=== PATIENT | male | born 1970 | race African-American/Black ===

== ENCOUNTER 2022-10-08 11:59 | Inpatient (IN) | payer OTHER ==
[~2022-10-08] VITALS: Ht 180.3 cm; Wt 87.1 kg
[2022-10-08] MEDS ORDERED: SODIUM CHLORIDE 0.9% 1,000 ML IV ONE (12:30)
[2022-10-08] MEDS ORDERED: PANTOPRAZOLE 40 MG/10 ML VIAL INJ IV ONE (12:30)
[2022-10-08 13:18] LABS: Basophils # (auto) 0.1 10 ^3/uL (0-0.2); Eosinophils # (auto) 0.4 10 ^3/uL (0-0.8); Hemoglobin 8.6 g/dL (13.5-17.5); Monocytes # (auto) 0.8 10 ^3/uL (0-1.3); Neutrophils % (auto) 59.1 % (37.0-80.0); White Blood Cell 10.1 10^3/uL (4.4-10.8)
[2022-10-08 13:19] VITALS: PULSE 70; RESP 20; O2SAT 100
[2022-10-08 13:20] LABS: Basophils % (auto) 1.2 % (0.0-2.0); Eosinophils % (auto) 4.2 % (0.0-7.0); Lymphocytes # (auto) 2.8 10 ^3/uL (0.4-5.4); Lymphocytes % (auto) 27.3 % (10.0-50.0); Mean Corpuscular Hemoglobin 18.7 pg (28.0-32.0); Mean Corpuscular Hgb Conc. 29.7 g/dL (32.0-36.0); Monocytes % (auto) 8.2 % (0.0-12.0); Nucleated Red Blood Cells % 0.1 %; Red Cell Distribution Width 18.2 % (11.8-14.3)
[2022-10-08 13:34] LABS: Alanine Aminotransferase 22 U/L (7-40); Albumin 4.3 g/dL (3.2-4.8); Alkaline Phosphatase 124 U/L (46-116); Anion Gap 6.2 (5-15); Aspartate Aminotransferase 21 U/L (13-40); Bilirubin, Total 0.4 mg/dL (0.2-1.0); Blood Urea Nitrogen 16 mg/dL (9-23); Calcium 9.4 mg/dL (8.5-10.1); Carbon Dioxide 26.8 mmol/L (20-30); Chloride 107 mmol/L (98-107); Glucose 69 mg/dL (74-106); Lipase 40 U/L (12-53); Potassium 4.5 mmol/L (3.5-5.1); Sodium 140 mmol/L (136-145); Total Protein 7.2 g/dL (5.7-8.2)
[2022-10-08] MEDS ORDERED: MORPHINE SULFATE INJ 2 MG/ml SYRG IV PRN (15:15)
[2022-10-08] MEDS ORDERED: NITROGLYCERIN 0.4 MG SL TAB SL PRN (15:15)
[2022-10-08] MEDS ORDERED: ONDANSETRON HCL 4 MG/2 ML VIAL IV PRN (15:15)
[2022-10-08] MEDS: D5W/SOD CHL 0.45% 1,000 ML IV SCH (15:38)
[2022-10-08 17:10] LABS: Urine WBC None Seen /hpf (0 - 3)
[2022-10-08 17:17] LABS: Urine Bacteria NONE SEEN /hpf (None Seen); Urine Blood Negative /uL (Negative); Urine Clarity Clear (Clear); Urine Color Yellow (Yellow); Urine Protein, UAD 1+ (Negative); Urine Specific Gravity 1.027 (1.001-1.035); Urine Urobilinogen Normal (Negative)
[2022-10-08 19:50] VITALS: PULSE 70; RESP 98; O2SAT 98
[2022-10-08 20:30] LABS: INR 1.03 (0.9-1.15); Partial Thromboplastin Time 24.1 SEC (24.5-34.5); Prothrombin Time 10.8 sec (9.3-11.8)
[2022-10-08 21:59] VITALS: BP 104/43; PULSE 74; RESP 19; TEMP 97.5; O2SAT 100
[2022-10-08] MEDS: PANTOPRAZOLE 40 MG/10 ML VIAL INJ IV SCH (22:35)
[2022-10-08] MEDS ORDERED: INSRTEST IV ×2 (22:38)
[2022-10-08] MEDS ORDERED: LISI2.5T47 PO (22:38)
[2022-10-08] MEDS ORDERED: ASPI-123 PO (22:38)
[2022-10-09] VITALS (7 sets, daily range): BP systolic 128–149; BP diastolic 61–81; PULSE 65–81; RESP 16–18; TEMP 97.8–98.7; O2SAT 98–100
[2022-10-09] MEDS: D5W/SOD CHL 0.45% 1,000 ML IV SCH ×3 (01:30→21:56)
[2022-10-09 06:25] LABS: Basophils # (auto) 0.1 10 ^3/uL (0-0.2); Eosinophils # (auto) 0.4 10 ^3/uL (0-0.8); Monocytes # (auto) 0.7 10 ^3/uL (0-1.3); Nucleated Red Blood Cells % 0.1 %
[2022-10-09 06:27] LABS: Eosinophils % (auto) 4.5 % (0.0-7.0); Hematocrit 27.1 % (41.0-53.0); Hemoglobin 8.1 g/dL (13.5-17.5); Lymphocytes # (auto) 2.3 10 ^3/uL (0.4-5.4); Lymphocytes % (auto) 28.1 % (10.0-50.0); Mean Corpuscular Hemoglobin 18.8 pg (28.0-32.0); Mean Corpuscular Hgb Conc. 29.9 g/dL (32.0-36.0); Monocytes % (auto) 8.7 % (0.0-12.0); Neutrophils # (auto) 4.7 10 ^3/uL (1.6-8.6); Neutrophils % (auto) 57.7 % (37.0-80.0); Red Blood Cells 4.31 10^6/uL (4.5-5.90); Red Cell Distribution Width 18.1 % (11.8-14.3); White Blood Cell 8.2 10^3/uL (4.4-10.8)
[2022-10-09 06:49] LABS: Alanine Aminotransferase 18 U/L (7-40); Albumin 3.7 g/dL (3.2-4.8); Alkaline Phosphatase 109 U/L (46-116); Anion Gap 5.3 (5-15); Aspartate Aminotransferase 20 U/L (13-40); BUN/Creatinine Ratio 10.6 (10.0-20.0); Bilirubin, Total 0.6 mg/dL (0.2-1.0); Blood Urea Nitrogen 12 mg/dL (9-23); Calcium 8.9 mg/dL (8.5-10.1); Carbon Dioxide 26.7 mmol/L (20-30); Chloride 108 mmol/L (98-107); Glucose 129 mg/dL (74-106); Potassium 4.6 mmol/L (3.5-5.1); Sodium 140 mmol/L (136-145); Total Protein 6.3 g/dL (5.7-8.2)
[2022-10-09] MEDS: PANTOPRAZOLE 40 MG/10 ML VIAL INJ IV SCH ×2 (10:00→22:12)
[2022-10-09] MEDS ORDERED: DEXTROSE (50%) 50ML SYRG IV PRN (11:30)
[2022-10-09] MEDS: InsuLIN REG 1unit/0.01ml Soln (100units/ml) SC SCH ×3 (12:22→21:55)
[2022-10-09] MEDS: ACCU-CHEK COMFORT CURVE STRIP VI SCH ×3 (12:22→21:55)
[2022-10-10] VITALS (8 sets, daily range): BP systolic 117–156; BP diastolic 54–85; PULSE 74–83; RESP 12–20; TEMP 97.7–98.2; O2SAT 95–100
[2022-10-10 05:57] LABS: Basophils # (auto) 0.1 10 ^3/uL (0-0.2); Basophils % (auto) 1.1 % (0.0-2.0); Eosinophils # (auto) 0.4 10 ^3/uL (0-0.8); Hematocrit 28.4 % (41.0-53.0); Hemoglobin 8.5 g/dL (13.5-17.5); Lymphocytes # (auto) 2.2 10 ^3/uL (0.4-5.4); Lymphocytes % (auto) 25.3 % (10.0-50.0); Mean Corpuscular Hemoglobin 18.7 pg (28.0-32.0); Mean Corpuscular Hgb Conc. 29.8 g/dL (32.0-36.0); Mean Corpuscular Volume 62.8 fL (80.0-100.0); Monocytes # (auto) 0.6 10 ^3/uL (0-1.3); Monocytes % (auto) 6.7 % (0.0-12.0); Neutrophils # (auto) 5.5 10 ^3/uL (1.6-8.6); Neutrophils % (auto) 62.9 % (37.0-80.0); Nucleated Red Blood Cells % 0.1 %; Red Blood Cells 4.53 10^6/uL (4.5-5.90); Red Cell Distribution Width 18.4 % (11.8-14.3); White Blood Cell 8.8 10^3/uL (4.4-10.8)
[2022-10-10 06:07] LABS: Alanine Aminotransferase 18 U/L (7-40); Albumin 3.7 g/dL (3.2-4.8); Alkaline Phosphatase 116 U/L (46-116); Anion Gap 6.3 (5-15); Aspartate Aminotransferase 20 U/L (13-40); BUN/Creatinine Ratio 8.3 (10.0-20.0); Bilirubin, Total 0.4 mg/dL (0.2-1.0); Blood Urea Nitrogen 9 mg/dL (9-23); Carbon Dioxide 26.7 mmol/L (20-30); Chloride 107 mmol/L (98-107); Glucose 112 mg/dL (74-106); Potassium 4.3 mmol/L (3.5-5.1); Sodium 140 mmol/L (136-145); Total Protein 6.4 g/dL (5.7-8.2)
[2022-10-10] MEDS: ACCU-CHEK COMFORT CURVE STRIP VI SCH ×4 (06:32→21:54)
[2022-10-10] MEDS: InsuLIN REG 1unit/0.01ml Soln (100units/ml) SC SCH ×4 (06:33→22:00)
[2022-10-10] MEDS: D5W/SOD CHL 0.45% 1,000 ML IV SCH ×2 (07:37→17:30)
[2022-10-10] MEDS ORDERED: diphenhdrAMINE HCL 50 MG/1 ML VL ONE (08:04)
[2022-10-10] MEDS ORDERED: LIDOCAINE VISCOUS 2% 15ML UD ONE (08:04)
[2022-10-10] MEDS ORDERED: NALOXONE HCL 0.4 MG/ML VIAL ONE (08:04)
[2022-10-10] MEDS ORDERED: SODIUM CHLORIDE LOCK 10 ML ONE (08:04)
[2022-10-10] MEDS ORDERED: FLUMAZENIL 0.1 MG/ML INJ 10ML MDV IV ONE (08:04)
[2022-10-10 08:15] LABS: Platelet Estimate Adequate
[2022-10-10 08:16] LABS: Hypochromia Marked
[2022-10-10] MEDS: MIDAZOLAM HCL 5 MG/ML-1ML VIAL ONE ×4 (08:44→08:55)
[2022-10-10] MEDS: fentaNYL CITRATE 100 MCG/2 ML VL ONE ×3 (08:44→08:50)
[2022-10-10] MEDS ORDERED: fentaNYL CITRATE 100 MCG/2 ML VL ONE (08:58)
[2022-10-10] MEDS ORDERED: MIDAZOLAM HCL 2MG/2ML 2ml VIAL (1mg/ml) ONE (08:58)
[2022-10-10] MEDS: PANTOPRAZOLE 40 MG/10 ML VIAL INJ IV SCH ×2 (10:21→21:45)
[2022-10-10] MEDS: CIPROFLOXACIN 400MG/200ML 200 ML IV SCH ×2 (14:34→21:45)
[2022-10-10] MEDS: metroNIDAZOLE 500MG/100ML 100 ML IV SCH ×2 (16:18→23:33)
[2022-10-11] VITALS (9 sets, daily range): BP systolic 108–136; BP diastolic 66–82; PULSE 56–98; RESP 15–20; TEMP 97.7–99; O2SAT 94–100
[2022-10-11] MEDS: D5W/SOD CHL 0.45% 1,000 ML IV SCH (03:30)
[2022-10-11] MEDS: CIPROFLOXACIN 400MG/200ML 200 ML IV SCH ×3 (05:05→21:04)
[2022-10-11] MEDS ORDERED: DexAMETHasone SOD PHOS 4 MG/1ML SDV INJ ONE (06:51)
[2022-10-11] MEDS ORDERED: EPINEPHrine HCL 1 MG/1 ML AMP ONE (06:51)
[2022-10-11] MEDS ORDERED: BUPIVACAINE 0.25% INJ 50ML VIAL ONE (06:51)
[2022-10-11] MEDS ORDERED: SODIUM CHLORIDE LOCK 10 ML ONE (06:59)
[2022-10-11] MEDS: ACCU-CHEK COMFORT CURVE STRIP VI SCH ×4 (07:00→21:25)
[2022-10-11] MEDS: metroNIDAZOLE 500MG/100ML 100 ML IV SCH ×3 (07:00→23:06)
[2022-10-11] MEDS: InsuLIN REG 1unit/0.01ml Soln (100units/ml) SC SCH ×4 (07:00→21:24)
[2022-10-11 07:01] LABS: Alanine Aminotransferase 11 U/L (7-40); Albumin 3.8 g/dL (3.2-4.8); Alkaline Phosphatase 119 U/L (46-116); Anion Gap 7.5 (5-15); Aspartate Aminotransferase 14 U/L (13-40); BUN/Creatinine Ratio 7.3 (10.0-20.0); Bilirubin, Total 0.5 mg/dL (0.2-1.0); Blood Urea Nitrogen 8 mg/dL (9-23); Calcium 8.9 mg/dL (8.7-10.4); Carbon Dioxide 22.5 mmol/L (20-30); Chloride 107 mmol/L (98-107); Glucose 121 mg/dL (74-106); Potassium 3.6 mmol/L (3.5-5.1); Sodium 137 mmol/L (136-145)
[2022-10-11 07:02] LABS: Total Protein 6.8 g/dL (5.7-8.2)
[2022-10-11 07:46] LABS: Basophils # (auto) 0.1 10 ^3/uL (0-0.2); Eosinophils # (auto) 0.2 10 ^3/uL (0-0.8); Hemoglobin 8.8 g/dL (13.5-17.5); Mean Corpuscular Volume 62.9 fL (80.0-100.0); Monocytes # (auto) 0.6 10 ^3/uL (0-1.3); Nucleated Red Blood Cells % 0.1 %; Red Cell Distribution Width 18.5 % (11.8-14.3)
[2022-10-11 07:50] LABS: Basophils % (auto) 0.7 % (0.0-2.0); Hematocrit 29.4 % (41.0-53.0); Lymphocytes # (auto) 1.8 10 ^3/uL (0.4-5.4); Lymphocytes % (auto) 18.4 % (10.0-50.0); Mean Corpuscular Hemoglobin 18.9 pg (28.0-32.0); Mean Corpuscular Hgb Conc. 30.1 g/dL (32.0-36.0); Monocytes % (auto) 6.3 % (0.0-12.0); Neutrophils # (auto) 6.9 10 ^3/uL (1.6-8.6); Neutrophils % (auto) 72.6 % (37.0-80.0); Red Blood Cells 4.67 10^6/uL (4.5-5.90); White Blood Cell 9.5 10^3/uL (4.4-10.8)
[2022-10-11] MEDS ORDERED: LIDOCAINE 2% JELLY 11ml (GLYDO) ONE (08:29)
[2022-10-11] MEDS ORDERED: ACETAMINOPHEN IV 1000 MG/100ML (10MG/ML) IV ONE (08:30)
[2022-10-11] MEDS: GABAPENTIN 300 MG CAP PO ONE ×2 (08:30→08:44)
[2022-10-11] MEDS: CELECOXIB 100 MG CAP PO ONE ×2 (08:30→08:44)
[2022-10-11] MEDS ORDERED: ROCURONIUM 10MG/ML 10ML VIAL IV ONE (08:34)
[2022-10-11] MEDS ORDERED: PROPOFOL 10 MG/ML 20 ML IV ONE (08:34)
[2022-10-11] MEDS ORDERED: ONDANSETRON HCL 4 MG/2 ML VIAL ONE (08:36)
[2022-10-11] MEDS ORDERED: KETOROLAC TROMETH 30 MG/ML 1ML VIAL ONE (08:36)
[2022-10-11] MEDS ORDERED: DexAMETHasone SOD PHOS 10MG/1ML VIAL INJ ONE (08:36)
[2022-10-11] MEDS ORDERED: GLYCOPYRROLATE 0.2 MG/ML 1ML VIAL ONE (08:36)
[2022-10-11] MEDS ORDERED: fentaNYL CITRATE 100 MCG/2 ML VL ONE (09:28)
[2022-10-11] MEDS ORDERED: SUGAMMADEX 200mg/2ml Vial (100MG/ML) IV ONE (09:28)
[2022-10-11] MEDS: PANTOPRAZOLE 40 MG/10 ML VIAL INJ IV SCH ×2 (09:42→21:09)
[2022-10-11] MEDS ORDERED: HYDROmorphone HCL 2 MG/ML VL/or syr IV PRN (10:30)
[2022-10-11] MEDS ORDERED: ePHEDrine SULFATE 50 MG/ML AMP IV PRN (10:30)
[2022-10-11] MEDS ORDERED: ONDANSETRON HCL 4 MG/2 ML VIAL IV PRN (10:30)
[2022-10-11] MEDS ORDERED: LABETALOL HCL 5 MG/ML 4ML SYRINGE IV PRN (10:30)
[2022-10-11] MEDS ORDERED: fentaNYL CITRATE 100 MCG/2 ML VL IV PRN (10:30)
[2022-10-11] MEDS ORDERED: oxyCODONE HCL 5MG TAB PO PRN (10:30)
[2022-10-11] MEDS ORDERED: hydrALAZINE HCL 20 MG/ML VL IV PRN (10:30)
[2022-10-11] MEDS ORDERED: NALOXONE HCL 0.4 MG/ML VIAL IV PRN (10:30)
[2022-10-11] MEDS ORDERED: FLUMAZENIL 0.1 MG/ML INJ 10ML MDV IV PRN (10:30)
[2022-10-11 11:20] LABS: Hypochromia Moderate; Platelet Estimate Adequate
[2022-10-11] MEDS ORDERED: PHENYLEPHRINE HCL 10 MG/ML VL IV ONE (11:53)
[2022-10-11] MEDS ORDERED: KETAMINE 50mg/ML 10ml Vial (500mg/10ml) IV ONE (11:53)
[2022-10-11] MEDS: D5W/SOD CHL 0.45%/KCL 20MEQ 1,000 ML IV SCH ×2 (13:58→21:04)
[2022-10-12] VITALS (8 sets, daily range): BP systolic 111–164; BP diastolic 55–89; PULSE 63–97; RESP 15–18; TEMP 97.7–98.4; O2SAT 95–98
[2022-10-12] MEDS: D5W/SOD CHL 0.45%/KCL 20MEQ 1,000 ML IV SCH ×3 (02:40→20:18)
[2022-10-12] MEDS: CIPROFLOXACIN 400MG/200ML 200 ML IV SCH ×3 (05:33→21:42)
[2022-10-12] MEDS: InsuLIN REG 1unit/0.01ml Soln (100units/ml) SC SCH ×4 (06:14→21:42)
[2022-10-12] MEDS: ACCU-CHEK COMFORT CURVE STRIP VI SCH ×4 (06:14→21:46)
[2022-10-12] MEDS: metroNIDAZOLE 500MG/100ML 100 ML IV SCH ×3 (06:15→23:13)
[2022-10-12 06:46] LABS: Basophils # (auto) 0 10 ^3/uL (0-0.2); Eosinophils # (auto) 0 10 ^3/uL (0-0.8); White Blood Cell 17.4 10^3/uL (4.4-10.8)
[2022-10-12 06:48] LABS: Hematocrit 30.3 % (41.0-53.0); Lymphocytes % (auto) 5.7 % (10.0-50.0); Mean Corpuscular Hemoglobin 18.6 pg (28.0-32.0); Mean Corpuscular Hgb Conc. 29.6 g/dL (32.0-36.0); Monocytes % (auto) 5.5 % (0.0-12.0); Neutrophils # (auto) 15.5 10 ^3/uL (1.6-8.6); Neutrophils % (auto) 88.8 % (37.0-80.0); Nucleated Red Blood Cells % 0.1 %; Red Blood Cells 4.81 10^6/uL (4.5-5.90); Red Cell Distribution Width 18.5 % (11.8-14.3)
[2022-10-12 07:04] LABS: Alanine Aminotransferase 17 U/L (7-40); Alkaline Phosphatase 118 U/L (46-116); Anion Gap 6.2 (5-15); Aspartate Aminotransferase 36 U/L (13-40); Blood Urea Nitrogen 13 mg/dL (9-23); Calcium 9.1 mg/dL (8.7-10.4); Carbon Dioxide 23.8 mmol/L (20-30); Chloride 106 mmol/L (98-107); Potassium 4.3 mmol/L (3.5-5.1); Sodium 136 mmol/L (136-145)
[2022-10-12 07:05] LABS: Bilirubin, Total 0.4 mg/dL (0.2-1.0); Total Protein 7.2 g/dL (5.7-8.2)
[2022-10-12 07:07] LABS: Glucose 230 mg/dL (74-106)
[2022-10-12] MEDS: PANTOPRAZOLE 40 MG/10 ML VIAL INJ IV SCH ×2 (09:20→21:42)
[2022-10-12] MEDS: MORPHINE SULFATE INJ 2 MG/ml SYRG IV PRN (20:17)
[2022-10-13] VITALS (8 sets, daily range): BP systolic 141–156; BP diastolic 74–85; PULSE 87–97; RESP 16–18; TEMP 98.1–98.9; O2SAT 95–98
[2022-10-13] MEDS: D5W/SOD CHL 0.45%/KCL 20MEQ 1,000 ML IV SCH ×3 (03:40→20:59)
[2022-10-13] MEDS: CIPROFLOXACIN 400MG/200ML 200 ML IV SCH ×3 (05:49→22:07)
[2022-10-13] MEDS: ACCU-CHEK COMFORT CURVE STRIP VI SCH ×4 (06:33→22:08)
[2022-10-13] MEDS: InsuLIN REG 1unit/0.01ml Soln (100units/ml) SC SCH ×4 (06:34→23:07)
[2022-10-13] MEDS: metroNIDAZOLE 500MG/100ML 100 ML IV SCH ×3 (06:35→22:58)
[2022-10-13] MEDS: MORPHINE SULFATE INJ 2 MG/ml SYRG IV PRN (08:31)
[2022-10-13] MEDS: PANTOPRAZOLE 40 MG/10 ML VIAL INJ IV SCH ×2 (09:57→22:08)
[2022-10-13] MEDS ORDERED: chlorproMAZINE INECTION 25 MG in SODIUM CHL 0.9% 50 ML IV SCH (18:00)
[2022-10-14] VITALS (7 sets, daily range): BP systolic 137–155; BP diastolic 80–82; PULSE 82–97; RESP 18–20; TEMP 98.2–99; O2SAT 97–98
[2022-10-14 06:05] LABS: Basophils # (auto) 0.1 10 ^3/uL (0-0.2); Hemoglobin 8.4 g/dL (13.5-17.5); Lymphocytes # (auto) 2.3 10 ^3/uL (0.4-5.4); Lymphocytes % (auto) 20.7 % (10.0-50.0); Mean Corpuscular Hemoglobin 18.4 pg (28.0-32.0); Monocytes # (auto) 0.9 10 ^3/uL (0-1.3); Red Blood Cells 4.57 10^6/uL (4.5-5.90)
[2022-10-14 06:07] LABS: Basophils % (auto) 0.8 % (0.0-2.0); Eosinophils # (auto) 0.3 10 ^3/uL (0-0.8); Eosinophils % (auto) 2.3 % (0.0-7.0); Hematocrit 28.1 % (41.0-53.0); Mean Corpuscular Volume 61.4 fL (80.0-100.0); Monocytes % (auto) 8.6 % (0.0-12.0); Neutrophils # (auto) 7.5 10 ^3/uL (1.6-8.6); Neutrophils % (auto) 67.6 % (37.0-80.0); Nucleated Red Blood Cells % 0.1 %; Red Cell Distribution Width 18.6 % (11.8-14.3)
[2022-10-14] MEDS: CIPROFLOXACIN 400MG/200ML 200 ML IV SCH ×3 (06:18→23:05)
[2022-10-14 06:19] LABS: Alanine Aminotransferase 25 U/L (7-40); Albumin 3.4 g/dL (3.2-4.8); Alkaline Phosphatase 100 U/L (46-116); Anion Gap 5.2 (5-15); Aspartate Aminotransferase 36 U/L (13-40); BUN/Creatinine Ratio 10.1 (10.0-20.0); Blood Urea Nitrogen 11 mg/dL (9-23); Calcium 8.6 mg/dL (8.5-10.1); Carbon Dioxide 24.8 mmol/L (20-30); Chloride 106 mmol/L (98-107); Glucose 185 mg/dL (74-106); Potassium 3.9 mmol/L (3.5-5.1); Sodium 136 mmol/L (136-145)
[2022-10-14 06:20] LABS: Bilirubin, Total 0.4 mg/dL (0.2-1.0); Total Protein 5.9 g/dL (5.7-8.2)
[2022-10-14] MEDS: ACCU-CHEK COMFORT CURVE STRIP VI SCH ×4 (06:59→23:07)
[2022-10-14] MEDS: metroNIDAZOLE 500MG/100ML 100 ML IV SCH ×2 (06:59→16:24)
[2022-10-14] MEDS: InsuLIN REG 1unit/0.01ml Soln (100units/ml) SC SCH ×4 (06:59→22:00)
[2022-10-14] MEDS ORDERED: chlorproMAZINE INECTION 25 MG in SODIUM CHL 0.9% 50 ML IV PRN (07:15)
[2022-10-14 09:43] LABS: Platelet Estimate Adequate
[2022-10-14 09:44] LABS: Hypochromia Marked
[2022-10-14] MEDS: PANTOPRAZOLE 40 MG/10 ML VIAL INJ IV SCH ×2 (09:49→23:06)
[2022-10-14] MEDS: D5W/SOD CHL 0.45%/KCL 20MEQ 1,000 ML IV SCH (10:08)
[2022-10-15] VITALS (9 sets, daily range): BP systolic 134–161; BP diastolic 69–93; PULSE 90–121; RESP 18–20; TEMP 97.9–98.9; O2SAT 96–99
[2022-10-15] MEDS: metroNIDAZOLE 500MG/100ML 100 ML IV SCH ×4 (01:05→22:57)
[2022-10-15] MEDS: InsuLIN REG 1unit/0.01ml Soln (100units/ml) SC SCH ×4 (06:31→21:24)
[2022-10-15] MEDS: CIPROFLOXACIN 400MG/200ML 200 ML IV SCH ×3 (06:32→21:24)
[2022-10-15] MEDS: ACCU-CHEK COMFORT CURVE STRIP VI SCH ×4 (06:32→21:24)
[2022-10-15 06:39] LABS: Anion Gap 5.8 (5-15); Carbon Dioxide 23.2 mmol/L (20-30); Chloride 105 mmol/L (98-107); Potassium 3.8 mmol/L (3.5-5.1); Sodium 134 mmol/L (136-145)
[2022-10-15 06:40] LABS: Calcium 8.7 mg/dL (8.7-10.4)
[2022-10-15 06:45] LABS: BUN/Creatinine Ratio 9.2 (10.0-20.0); Blood Urea Nitrogen 9 mg/dL (9-23); Glucose 204 mg/dL (74-106)
[2022-10-15] MEDS: D5W/SOD CHL 0.45%/KCL 20MEQ 1,000 ML IV SCH ×3 (06:57→14:00)
[2022-10-15] MEDS: PANTOPRAZOLE 40 MG/10 ML VIAL INJ IV SCH ×2 (10:29→21:24)
[2022-10-15] MEDS ORDERED: GASTROGRAFIN 30 ML SOL PO ONE (12:00)
[2022-10-15] MEDS ORDERED: GASTROGRAFIN 120 ML SOL PO ONE (12:00)
[2022-10-15] MEDS ORDERED: hydrALAZINE HCL 20 MG/ML VL IV ONE (22:30)
[2022-10-16] VITALS (8 sets, daily range): BP systolic 96–155; BP diastolic 45–86; PULSE 85–93; RESP 18–20; TEMP 98.1–99; O2SAT 94–99
[2022-10-16] MEDS: CIPROFLOXACIN 400MG/200ML 200 ML IV SCH ×3 (05:51→21:15)
[2022-10-16 06:22] LABS: Basophils # (auto) 0.1 10 ^3/uL (0-0.2); Lymphocytes # (auto) 1.7 10 ^3/uL (0.4-5.4); Monocytes # (auto) 0.8 10 ^3/uL (0-1.3); Neutrophils # (auto) 6.9 10 ^3/uL (1.6-8.6)
[2022-10-16 06:25] LABS: Basophils % (auto) 0.9 % (0.0-2.0); Eosinophils # (auto) 0.6 10 ^3/uL (0-0.8); Eosinophils % (auto) 6.3 % (0.0-7.0); Hematocrit 28.3 % (41.0-53.0); Hemoglobin 8.5 g/dL (13.5-17.5); Lymphocytes % (auto) 16.8 % (10.0-50.0); Mean Corpuscular Hemoglobin 18.5 pg (28.0-32.0); Mean Corpuscular Hgb Conc. 30.1 g/dL (32.0-36.0); Mean Corpuscular Volume 61.5 fL (80.0-100.0); Monocytes % (auto) 7.7 % (0.0-12.0); Neutrophils % (auto) 68.3 % (37.0-80.0); Nucleated Red Blood Cells % 0.1 %; Red Cell Distribution Width 18.7 % (11.8-14.3); White Blood Cell 10.1 10^3/uL (4.4-10.8)
[2022-10-16] MEDS: ACCU-CHEK COMFORT CURVE STRIP VI SCH ×4 (06:28→23:00)
[2022-10-16] MEDS: InsuLIN REG 1unit/0.01ml Soln (100units/ml) SC SCH ×4 (06:29→23:01)
[2022-10-16 06:44] LABS: Anion Gap 7.1 (5-15); Carbon Dioxide 22.9 mmol/L (20-30); Chloride 106 mmol/L (98-107); Potassium 3.6 mmol/L (3.5-5.1); Sodium 136 mmol/L (136-145)
[2022-10-16 06:45] LABS: Calcium 8.7 mg/dL (8.7-10.4)
[2022-10-16 06:50] LABS: BUN/Creatinine Ratio 9.3 (10.0-20.0); Blood Urea Nitrogen 10 mg/dL (9-23); Glucose 140 mg/dL (74-106)
[2022-10-16] MEDS: metroNIDAZOLE 500MG/100ML 100 ML IV SCH ×3 (07:00→23:07)
[2022-10-16] MEDS: PANTOPRAZOLE 40 MG/10 ML VIAL INJ IV SCH ×2 (09:34→21:13)
[2022-10-16] MEDS: ENOXAPARIN SOD 40 MG/0.4 ML SYRINGE SC SCH (09:34)
[2022-10-16] MEDS ORDERED: cloNIDine HCL 0.1 MG TAB PO PRN (11:45)
[2022-10-17 05:00] VITALS: BP 126/63; PULSE 96; RESP 20; TEMP 98.3; O2SAT 98
[2022-10-17] MEDS: CIPROFLOXACIN 400MG/200ML 200 ML IV SCH ×3 (05:54→21:17)
[2022-10-17] MEDS: ACCU-CHEK COMFORT CURVE STRIP VI SCH ×4 (07:09→21:18)
[2022-10-17] MEDS: metroNIDAZOLE 500MG/100ML 100 ML IV SCH ×3 (07:09→23:59)
[2022-10-17] MEDS: InsuLIN REG 1unit/0.01ml Soln (100units/ml) SC SCH ×4 (07:15→21:36)
[2022-10-17 08:00] VITALS: BP 125/76; PULSE 86; PULSE 87; RESP 20; TEMP 98.1; O2SAT 97
[2022-10-17] MEDS: PANTOPRAZOLE 40 MG/10 ML VIAL INJ IV SCH ×2 (09:53→21:18)
[2022-10-17] MEDS: ENOXAPARIN SOD 40 MG/0.4 ML SYRINGE SC SCH (09:54)
[2022-10-17 12:00] VITALS: BP 130/76; PULSE 93; RESP 20; TEMP 97.9; O2SAT 97
[2022-10-17] MEDS ORDERED: HYDROcodone-ACET 10/325MG TAB PO PRN (13:30)
[2022-10-17 16:00] VITALS: BP 148/83; PULSE 100; RESP 20; TEMP 97.3; O2SAT 100
[2022-10-17 19:50] VITALS: PULSE 87; PULSE 89; O2SAT 99
[2022-10-17 22:06] VITALS: BP 150/84; PULSE 89; RESP 18; TEMP 98.8; O2SAT 99
[2022-10-18 05:11] VITALS: BP 132/75; PULSE 87; RESP 18; TEMP 99; O2SAT 97
[2022-10-18] MEDS: CIPROFLOXACIN 400MG/200ML 200 ML IV SCH ×2 (05:23→14:41)
[2022-10-18] MEDS: ACCU-CHEK COMFORT CURVE STRIP VI SCH ×3 (06:48→17:00)
[2022-10-18] MEDS: metroNIDAZOLE 500MG/100ML 100 ML IV SCH ×2 (06:49→15:27)
[2022-10-18] MEDS: InsuLIN REG 1unit/0.01ml Soln (100units/ml) SC SCH ×3 (06:56→17:00)
[2022-10-18 08:00] VITALS: BP 134/76; PULSE 83; PULSE 86; RESP 18; TEMP 98.4; O2SAT 98
[2022-10-18] MEDS: PANTOPRAZOLE 40 MG/10 ML VIAL INJ IV SCH (10:15)
[2022-10-18] MEDS: ENOXAPARIN SOD 40 MG/0.4 ML SYRINGE SC SCH (10:15)
[2022-10-18 12:00] VITALS: BP 136/65; PULSE 68; RESP 20; TEMP 98.6; O2SAT 98
[2022-10-18 16:49] VITALS: BP 129/73; PULSE 88; RESP 20; TEMP 98.6; O2SAT 95
== END 2022-10-18 18:00 | DRG 327 ==
LOC: ER 11:59 → EEVIPCON 11:59 → TELE 15:24 → TELE-WESTW 21:19
PROVIDERS: ADMIT Internal Medicine; ATTEND Internal Medicine
PROC: 0DJ08ZZ Inspection of Upper Intestinal Tract, Via Natural or Artificial Opening Endoscopic (ICD-10-PCS; 2022-10-10)
PROC: 0DU607Z Supplement Stomach with Autologous Tissue Substitute, Open Approach (ICD-10-PCS; 2022-10-11)
PROC: 0DC60ZZ Extirpation of Matter from Stomach, Open Approach (ICD-10-PCS; principal; 2022-10-11 08:50)
DX: T18.2XXA Foreign body in stomach, initial encounter (principal); D62 Acute posthemorrhagic anemia; K92.2 Gastrointestinal hemorrhage, unspecified; I10 Essential (primary) hypertension; E11.9 Type 2 diabetes mellitus without complications; B96.81 Helicobacter pylori [H. pylori] as the cause of diseases classified elsewhere
CPT/HCPCS: 36415; 43235; 71045; 74176; 74246; 80048; 80053; 81001; 82962; 83605; 83690; 84484; 85025; 85610; 85730; 86850; 86900; 86901; 93005; C9113; G0378; J0131; J0171; J1100; J1815; J1885; J2250; J2405; J2704; J3490

== ENCOUNTER 2023-11-20 13:09 | Emergency (ER) | payer OTHER ==
[~2023-11-20] VITALS: Ht 180.3 cm; Wt 93.1 kg
[~2023-11-20 13:09] MED LIST: ASPI-123 PO; INSRTEST IV; LISI2.5T47 PO
[2023-11-20 14:27] VITALS: PULSE 69; RESP 20; O2SAT 97
[2023-11-20] MEDS: traMADol HCL 50 MG TAB PO ONE (15:09)
[2023-11-20 15:32] LABS: Urine Bacteria None Seen /hpf (None Seen)
[2023-11-20 15:49] LABS: Urine Blood TRACE /uL (Negative); Urine Clarity Clear (Clear); Urine Color Light-Yellow (Yellow); Urine Hyaline Cast FEW /lpf (0 - 2); Urine Protein, UAD 1+ (Negative); Urine Specific Gravity 1.023 (1.001-1.035); Urine Urobilinogen Normal (Negative); Urine WBC <1 /hpf (0 - 3); Urine pH 5.5 (5.0-9.0)
[2023-11-20 16:37] VITALS: BP 155/75; PULSE 60; RESP 17; TEMP 98; O2SAT 98
== END 2023-11-20 16:41 ==
LOC: ER 13:09 → EEVIPCON 13:09 → ER 16:41
DX: N50.3 Cyst of epididymis (principal); I10 Essential (primary) hypertension; E11.9 Type 2 diabetes mellitus without complications; E78.5 Hyperlipidemia, unspecified; Z98.890 Other specified postprocedural states; Z88.0 Allergy status to penicillin; Z79.82 Long term (current) use of aspirin; Z79.899 Other long term (current) drug therapy
CPT/HCPCS: 76870; 81001

== ENCOUNTER → 2024-06-24 | Day surgery (SDC) | payer OTHER ==
[~2024-06-24] VITALS: Ht 180.3 cm; Wt 94.3 kg
[~2024-06-24] MED LIST changes: +MIDAZOLAM HCL 2MG/2ML 2ml VIAL (1mg/ml) ONE; +PROPOFOL 10 MG/ML 20 ML IV ONE; +diphenhdrAMINE HCL 50 MG/1 ML VL ONE; +fentaNYL CITRATE 100 MCG/2 ML VL ONE
[2024-06-24 07:47] LABS: Basophils # (auto) 0.1 10 ^3/uL (0-0.2); Basophils % (auto) 0.9 % (0.0-2.0); Eosinophils # (auto) 0.2 10 ^3/uL (0-0.8); Monocytes # (auto) 0.6 10 ^3/uL (0-1.3); Nucleated Red Blood Cells % 0.5 %
[2024-06-24 07:51] LABS: Eosinophils % (auto) 2.6 % (0.0-7.0); Hematocrit 51.2 % (41.0-53.0); Hemoglobin 17.2 g/dL (13.5-17.5); Lymphocytes # (auto) 2.3 10 ^3/uL (0.4-5.4); Lymphocytes % (auto) 24.4 % (10.0-50.0); Mean Corpuscular Hemoglobin 28.3 pg (28.0-32.0); Mean Corpuscular Hgb Conc. 33.6 g/dL (32.0-36.0); Mean Corpuscular Volume 84.2 fL (80.0-100.0); Monocytes % (auto) 6.6 % (0.0-12.0); Neutrophils # (auto) 6.1 10 ^3/uL (1.6-8.6); Neutrophils % (auto) 65.5 % (37.0-80.0); Platelet Count (auto) 171 10^3/uL (140-450); Red Blood Cells 6.08 10^6/uL (4.5-5.90); Red Cell Distribution Width 13.7 % (11.8-14.3); White Blood Cell 9.3 10^3/uL (4.4-10.8)
[2024-06-24 07:52] LABS: Chloride 105 mmol/L (98-107); Potassium 4.5 mmol/L (3.5-5.1); Sodium 143 mmol/L (136-145)
[2024-06-24 07:53] LABS: Anion Gap 7 (5-15)
[2024-06-24 07:54] LABS: Calcium 10.4 mg/dL (8.7-10.4); Carbon Dioxide 31 mmol/L (20-31)
[2024-06-24 07:58] LABS: Blood Urea Nitrogen 11 mg/dL (9-23); Glucose 103 mg/dL (74-106)
[2024-06-24 08:03] LABS: INR 1.02 (0.9-1.15); Partial Thromboplastin Time 22.8 SEC (24.5-34.5); Prothrombin Time 10.8 sec (9.3-11.8)
--- NOTE | 2024-06-24 08:51 | DVH ---
CHEST RADIOGRAPH Indication: pain Technique: Single frontal view of the chest was obtained COMPARISON: XY CHEST XRAY 1 VIEW on DOS: 10/10/22 FINDINGS: Lines and Tubes: None Lungs: Clear Pleura: No effusion. No pneumothorax. Cardiomediastinal contours: Unremarkable Bones: Unremarkable IMPRESSION: No acute disease.
--- NOTE | 2024-06-24 10:06 | ECG ---
[facility] Test Date: 2024-06-24 Test Time: 08:30:20 Pat Name: JING ANGUIANO Department: Room: Gender: Customer Account Administrator: KRISTEN : 1970 Requested By: JULIO RYDER Order Number: [id number] Reading MD: Luis Carlos Carter Measurements Intervals [place] Rate: 83 P: 55 AK: 188 QRS: 47 QRSD: 78 T: 17 QT: 368 QTc: 432 Interpretive Statements Normal sinus rhythm Electronically Signed On 06-29-2024 11:56:40 PDT by Luis Carlos Carter Please click the below link to view image of tracing.
[2024-06-24 10:26] VITALS: TEMP 97.3; O2SAT 100
--- NOTE | 2024-06-24 10:31 | DVHOP2 ---
Operative Report DATE OF OPERATION: 06/24/24 PROCEDURE: Upper Endoscopy with biopsy. PREOPERATIVE INDICATION: The patient is a 54 -year-old male undergoing endoscopy for history of anemia and H.pylori gastritis and previous gastric surgery for foreign body in the stomach POSTOPERATIVE DIAGNOSES: 1. Patient had mild gastritis with some hyperemia erythema and superficial erosions 2. Slightly irregular squamocolumnar junction but no significant erosive esophagitis 3. Otherwise normal examination up to the 2nd and 3rd part of the duodenum with good bile drainage PROCEDURE PERFORMED BY: Julio Saba GI NURSE: Edel SCOPE: Olympus videoendoscope. ASA CLASS: 2. PREOPERATIVE MEDICATIONS: Mac sedationDr. Col[place]a PROCEDURE IN DETAIL: After obtaining an informed consent, the patient was placed on left lateral decubitus position. The patient was then sedated with the above medications. A bite block was placed between his teeth. The endoscope was then passed through the oropharynx, into the esophagus, and through the stomach and pylorus up to the second and third part of the duodenum. The endoscope was then withdrawn. The 2nd and 3rd part of the duodenum and the duodenal bulb were normal. Duodenal biopsies were obtained. The pre-pyloric area antrum and body showed mild gastritis with some hyperemia erythema and superficial erosions. On retroflexion the fundus cardia and angularis were normal. The endoscope was then withdrawn into the distal esophagus The patient had a slightly irregular squamocolumnar junction. There was no significant erosive esophagitis. GE junction biopsies were The remaining distal proximal esophagus and oropharynx were unremarkable The patient tolerated the procedure well without difficulty. COMPLICATIONS : None SPECIMENS: Duodenal biopsies Gastric biopsies GE junction biopsies DISPOSITION: Stable D/C to home PLAN: 1. Await for biopsy result 2. Omeprazole 20 mg p.o. daily 3. DC aspirin NSAIDs smoking alcohol 4. Resume soft mechanical diet advance as tolerated 5. Outpatient follow up with me in 4-6 weeks to review results and discuss further management JULIO SABA MD June 24, 2024 10:31
--- NOTE | 2024-06-24 10:34 | DVHOP2 ---
Operative Report DATE OF OPERATION: 06/24/24 PROCEDURE: Diagnostic Colonoscopy. PREOPERATIVE INDICATION: The patient is a 54 -year-old male undergoing colonoscopy for colon cancer screening POSTOPERATIVE DIAGNOSES: 1. 1+ internal hemorrhoids otherwise essentially completely normal colonoscopy examination up to the cecum PROCEDURE PERFORMED BY: Julio Saba M.D. SCOPE: Olympus videocolonoscope. ASA CLASS: 2. PREOPERATIVE MEDICATIONS: Mac sedation, Dr. Col[place] PROCEDURE IN DETAIL: After obtaining an informed consent, the patient was placed on left lateral decubitus position. He was then sedated with the above medications. A rectal examination was performed that was normal. The colonoscope was then passed through the anus into the rectosigmoid and through the descending, transverse, and ascending colon up to the cecum with visualization of the appendiceal orifice, base of the cecum and the ileocecal valve. The colonoscope was then withdrawn. No polyps masses or lesions were seen There was no colitis or diverticular disease. On retroflexion and straight on view he had 1+ internal hemorrhoids The patient tolerated the procedure well without difficulty. WITHDRAWAL TIME: 7 minutes QUALITY OF THE PREP: [place] Bowel Prep score: 9 COMPLICATIONS : None SPECIMENS: None DISPOSITION: Stay D/C to home PLAN: 1. Repeat colonoscopy in 10 years 2. Resume GI soft diet advance as tolerated 3. Local anorectal hemorrhoidal care 4. Outpatient follow up with me in 4-6 weeks to review results and discuss further management JULIO SABA MD June 24, 2024 10:34
[2024-06-24 10:55] VITALS: BP 146/88; PULSE 94; RESP 12; O2SAT 96
== END | disposition home or self-care (01) ==
LOC: EEVIPCON 05-06 08:45 → GI 05-06 13:37 → EEVIPCON 05:51 → GI 05:51
PROVIDERS: ATTEND Internal Medicine Gastroenterology
DX: D64.9 Anemia, unspecified (principal); K64.8 Other hemorrhoids; K29.50 Unspecified chronic gastritis without bleeding; R63.4 Abnormal weight loss; I10 Essential (primary) hypertension; E11.9 Type 2 diabetes mellitus without complications; N40.0 Benign prostatic hyperplasia without lower urinary tract symptoms; E78.00 Pure hypercholesterolemia, unspecified; K21.9 Gastro-esophageal reflux disease without esophagitis; Z68.29 Body mass index [BMI] 29.0-29.9, adult; Z79.84 Long term (current) use of oral hypoglycemic drugs; Z86.73 Personal history of transient ischemic attack (TIA), and cerebral infarction without residual deficits; Z86.19 Personal history of other infectious and parasitic diseases; Z98.890 Other specified postprocedural states; Z88.0 Allergy status to penicillin
CPT/HCPCS: 36415; 43239; 45378; 71045; 80048; 85025; 85610; 85730; 88305; 88312; 88342; 93005; J1200; J2250; J2704; J3010; J7030